=== PATIENT | male | born 1975 | race Two or more races ===

== ENCOUNTER 2016-04-12 17:15 | Emergency (ER) | payer MEDICARE, MEDICAID ==
[2016-04-12] MEDS ORDERED: OLANZAPINE 10 MG VIAL IM ONE (18:15)
== END 2016-04-12 18:48 | disposition home or self-care (01) ==
LOC: ED 17:15
DX: F20.0 Paranoid schizophrenia (principal)

== ENCOUNTER 2016-04-15 21:13 | Emergency (ER) | payer MEDICARE, MEDICAID ==
[2016-04-16] MEDS ORDERED: HALOPERIDOL LACTATE 5 MG/1 ML AMP ONE (01:52)
== END 2016-04-16 02:09 | disposition home or self-care (01) ==
LOC: ED 21:13
DX: G47.00 Insomnia, unspecified (principal); R41.82 Altered mental status, unspecified; F20.9 Schizophrenia, unspecified
CPT/HCPCS: 99282; 96372; 93005; 99283; J1630